=== PATIENT | male | born 1985 | race Hispanic/Latino ===

== ENCOUNTER 2024-06-30 07:30 | Observation (INO) | payer BC, OTHER ==
[~2024-06-30] VITALS: Ht 160 cm; Wt 108.9 kg
[~2024-06-30 07:30] MED LIST: IBUP-2070 PO
[2024-06-30 08:41] LABS: BASOPHILS # (AUTO) 0.04 K/uL (0.00-0.20); BASOPHILS % (AUTO) 0.6 % (0.0-5.0); EOSINOPHILS # (AUTO) 0.08 K/uL (0.00-0.70); EOSINOPHILS % (AUTO) 1.3 % (0.0-8.0); HEMATOCRIT 48.5 % (42-54); IMMATURE GRANULOCYTE ABSOLUTE 0.02 K/uL (0-1); LYMPHOCYTES # (AUTO) 1.5 K/uL (1.0-4.8); LYMPHOCYTES % (AUTO) 24.1 % (21.0-51.0); MEAN CORPUSCULAR HEMOGLOBIN 30.1 pg (27.0-33.0); MEAN CORPUSCULAR HGB CONC 34.2 g/dL (32.0-36.0); MONOCYTES # (AUTO) 0.5 K/uL (0.1-1.0); MONOCYTES % (AUTO) 7.9 % (3.0-13.0); NEUTROPHILS # (AUTO) 4.2 K/uL (1.8-7.7); NEUTROPHILS % (AUTO) 65.8 % (40.0-77.0); PLATELET COUNT (AUTO) 223 K/uL (130-400); RED BLOOD CELL COUNT(AUTO) 5.51 MIL/uL (4.50-6.20); RED CELL DISTRIBUTION WIDTH 12.6 % (11.0-15.5); WHITE BLOOD COUNT (AUTO) 6.3 K/uL (4.8-10.8)
[2024-06-30] MEDS: ibuPROFEN 800 MG TAB PO ONE ×2 (08:44→16:11)
[2024-06-30] MEDS: 0.9%NACL 1000ML 1,000 ML IV ONE (08:44)
[2024-06-30] MEDS: CYCLOBENZAPRINE HCL 10 MG TABLET PO ONE ×2 (08:45→16:11)
[2024-06-30 08:58] LABS: CREATININE 1.1 mg/dL (0.5-1.3)
[2024-06-30 09:27] LABS: POTASSIUM 4.2 mmol/L (3.5-5.1)
[2024-06-30 18:27] VITALS: TEMP 98.2
[2024-07-01] MEDS: TRIAMCINOLONE ACETONIDE 40 MG/ML 1ML VIAL IM ONE (00:10)
[2024-07-01] MEDS ORDERED: ketOROlac 15MG/ML VIAL (15MG/ML) IV PRN (04:30)
[2024-07-01] MEDS ORDERED: ondanSETRON 4MG INJ IV PRN (04:30)
[2024-07-01] MEDS ORDERED: PoTASSium chloRIDE 20MEQ/100ML 100 ML IV PRN (04:30)
[2024-07-01] MEDS ORDERED: DEXTROSE 50%-WATER 50 ML DISP.SYRIN IV PRN (04:30)
[2024-07-01] MEDS ORDERED: GLUCAGON 1MG KIT 1 MG ML IM PRN (04:30)
[2024-07-01] MEDS ORDERED: acetaMINOPHEN 325 MG TAB PO PRN ×2 (04:30)
[2024-07-01] MEDS ORDERED: MAGNESIUM 2GM PREMIX 50ML 50 ML IV PRN (04:30)
[2024-07-01] MEDS ORDERED: PoTASSium chloRIDE 20MEQ ER 20 MEQ ERTAB PO PRN (04:30)
[2024-07-01] MEDS ORDERED: PoTASSium chl 10% ELIXIR 20MEQ 20 MEQ/15 ML UDCUP PO PRN (04:30)
[2024-07-01 07:30] VITALS: BP 153/88; PULSE 64; RESP 16; TEMP 97.9
[2024-07-01] MEDS: INSULIN humuLIN R 100 UNIT/ML 3ML SQ SCH (07:30)
[2024-07-01 07:36] LABS: BASOPHILS # (AUTO) 0.06 K/uL (0.00-0.20); BASOPHILS % (AUTO) 0.8 % (0.0-5.0); EOSINOPHILS # (AUTO) 0.15 K/uL (0.00-0.70); HEMATOCRIT 50.9 % (42-54); IMMATURE GRANULOCYTE ABSOLUTE 0.03 K/uL (0-1); LYMPHOCYTES # (AUTO) 1.7 K/uL (1.0-4.8); LYMPHOCYTES % (AUTO) 23.1 % (21.0-51.0); MEAN CORPUSCULAR HEMOGLOBIN 30.9 pg (27.0-33.0); MEAN CORPUSCULAR HGB CONC 34.8 g/dL (32.0-36.0); MEAN CORPUSCULAR VOLUME 88.8 fL (79-99); MONOCYTES # (AUTO) 0.6 K/uL (0.1-1.0); MONOCYTES % (AUTO) 7.8 % (3.0-13.0); NEUTROPHILS # (AUTO) 4.8 K/uL (1.8-7.7); NEUTROPHILS % (AUTO) 65.9 % (40.0-77.0); PLATELET COUNT (AUTO) 227 K/uL (130-400); RED BLOOD CELL COUNT(AUTO) 5.73 MIL/uL (4.50-6.20); RED CELL DISTRIBUTION WIDTH 12.9 % (11.0-15.5); WHITE BLOOD COUNT (AUTO) 7.3 K/uL (4.8-10.8)
[2024-07-01 07:50] LABS: ALBUMIN 3.9 g/dL (3.5-5.0); BILIRUBIN,TOTAL 0.8 mg/dL (0.2-1.0); POTASSIUM 4.8 mmol/L (3.5-5.1)
[2024-07-01 08:00] VITALS: O2SAT 98
[2024-07-01 08:40] LABS: ERYTHROCYTE SEDIMENTATION RATE 0 MM/HR (0-15)
[2024-07-01] MEDS ORDERED: ibuPROFEN 600 MG TABLET PO PRN (09:00)
[2024-07-01] MEDS: ketOROlac 15MG/ML VIAL (15MG/ML) IV PRN (10:33)
[2024-07-01] MEDS: FAMOTIDINE 20MG TAB PO SCH (10:33)
[2024-07-01] MEDS: Solu-medROL 40MG VIAL IVP SCH (10:33)
[2024-07-01 12:00] VITALS: BP 156/89; PULSE 81; RESP 16; TEMP 97.9
[2024-07-01] MEDS ORDERED: FAMO20TA8 PO (13:15)
[2024-07-01] MEDS ORDERED: PRED10TA3 PO (13:20)
[2024-07-01] MEDS ORDERED: PRED20TA3 PO (13:20)
[2024-07-01 16:00] VITALS: BP 141/98; PULSE 109; RESP 16; TEMP 98.2
== END 2024-07-01 17:45 | disposition home or self-care (01) ==
LOC: EDH 07:30 → INTOOBSV 07-01 04:02 → EDHIP 07-01 04:02 → 4AH 07-01 06:18
PROVIDERS: ADMIT Hospitalist; ATTEND Hospitalist
DX: M62.830 Muscle spasm of back (principal); M51.16 Intervertebral disc disorders with radiculopathy, lumbar region; E66.01 Morbid (severe) obesity due to excess calories; E11.649 Type 2 diabetes mellitus with hypoglycemia without coma; K46.9 Unspecified abdominal hernia without obstruction or gangrene; G89.29 Other chronic pain; M25.78 Osteophyte, vertebrae; F17.210 Nicotine dependence, cigarettes, uncomplicated; Z87.442 Personal history of urinary calculi; Z79.899 Other long term (current) drug therapy; Z68.42 Body mass index [BMI] 45.0-49.9, adult
CPT/HCPCS: 96361; 99285; 80048; 85025 ×2; 36415 ×2; 72131; 72148; 72146; 96374; 96372 ×2; 96375; 83036; 80061; 80053; 85651; 82948 ×2; J7030; G0378 ×6; J2919; J3301; J1885